=== PATIENT | female | born 1975 | race Two or more races ===

== ENCOUNTER 2021-12-19 22:35 | Inpatient (IN) | payer BC ==
[~2021-12-19] VITALS: Ht 167.6 cm; Wt 81.1 kg
[2021-12-20 01:03] LABS: Urine Bacteria NONE SEEN /hpf (None Seen); Urine Blood Negative /uL (Negative); Urine Specific Gravity 1.006 (1.001-1.035); Urine WBC <1 /hpf (0 - 5)
[2021-12-20 01:10] LABS: Eosinophils # (auto) 0.1 10 ^3/uL (0-0.8); Eosinophils % (auto) 0.8 % (0.0-7.0); Lymphocytes % (auto) 9.5 % (10.0-50.0); Monocytes # (auto) 0.9 10 ^3/uL (0-1.3)
[2021-12-20 01:11] LABS: Albumin 4.1 g/dL (3.4-5.0); Calcium 8.9 mg/dL (8.5-10.1)
[2021-12-20 01:12] LABS: Basophils # (auto) 0 10 ^3/uL (0-0.2); Basophils % (auto) 0.4 % (0.0-2.0); Hematocrit 40.7 % (36.0-46.0); Hemoglobin 13.1 g/dL (12.2-16.2); Lymphocytes # (auto) 1.2 10 ^3/uL (0.4-5.4); Mean Corpuscular Hemoglobin 26.3 pg (28.0-32.0); Mean Corpuscular Hgb Conc. 32.1 g/dL (32.0-36.0); Mean Corpuscular Volume 82.1 fL (80.0-100.0); Neutrophils # (auto) 10.5 10 ^3/uL (1.6-8.6); Neutrophils % (auto) 82.3 % (37.0-80.0); Red Blood Cells 4.96 10^6/uL (4.0-5.20); Red Cell Distribution Width 13.1 % (11.8-14.3); White Blood Cell 12.7 10^3/uL (4.4-10.8)
[2021-12-20 01:13] LABS: BUN/Creatinine Ratio 6.5
[2021-12-20 01:16] LABS: Bilirubin, Total 0.5 mg/dL (0.2-1.0); Total Protein 8.4 g/dL (6.4-8.2)
[2021-12-20] MEDS ORDERED: IOHEXOL 300 MG/ML 100ML BOTTLE IJ ONE (02:14)
[2021-12-20] MEDS ORDERED: KETOROLAC TROMETH 30 MG/ML 1ML VIAL IV ONE (02:45)
[2021-12-20] MEDS ORDERED: cefTRIAXone 1GM/50ML D5W 50 ML IV ONE (05:30)
[2021-12-20] MEDS ORDERED: metroNIDAZOLE 500MG/100ML 100 ML IV ONE (05:30)
[2021-12-20] MEDS ORDERED: HYDROcodone-ACET 5/325MG TAB PO PRN (09:15)
[2021-12-20] MEDS ORDERED: MORPHINE SULFATE INJ 2 MG/ml SYRG IV PRN (09:15)
[2021-12-20 10:20] LABS: Cholesterol 181 mg/dL (< 200); HDL Cholesterol 88 mg/dL (40-59); LDL Cholesterol 79 mg/dL (< 100); Triglycerides 78 mg/dL (< 150)
[2021-12-20] MEDS: SODIUM CHLORIDE 0.9% 1,000 ML IV SCH ×2 (10:30→22:15)
[2021-12-20] MEDS: PANTOPRAZOLE 40 MG/10 ML VIAL INJ IV SCH (10:53)
[2021-12-20] MEDS: ONDANSETRON HCL 4 MG/2 ML VIAL IV PRN (13:56)
[2021-12-20] MEDS: metroNIDAZOLE 500MG/100ML 100 ML IV SCH ×2 (14:07→22:15)
[2021-12-20] MEDS: ACETAMINOPHEN 325 MG TAB PO PRN (16:46)
[2021-12-21] MEDS: SODIUM CHLORIDE 0.9% 1,000 ML IV SCH ×3 (01:52→17:39)
[2021-12-21 06:01] LABS: Basophils # (auto) 0.1 10 ^3/uL (0-0.2); Basophils % (auto) 0.7 % (0.0-2.0); Eosinophils # (auto) 0.1 10 ^3/uL (0-0.8); Hematocrit 35.8 % (36.0-46.0); Hemoglobin 11.7 g/dL (12.2-16.2); Lymphocytes # (auto) 0.8 10 ^3/uL (0.4-5.4); Lymphocytes % (auto) 7.6 % (10.0-50.0); Mean Corpuscular Hemoglobin 26.6 pg (28.0-32.0); Mean Corpuscular Hgb Conc. 32.7 g/dL (32.0-36.0); Mean Corpuscular Volume 81.4 fL (80.0-100.0); Monocytes # (auto) 0.6 10 ^3/uL (0-1.3); Neutrophils # (auto) 8.8 10 ^3/uL (1.6-8.6); Neutrophils % (auto) 84.7 % (37.0-80.0); Red Cell Distribution Width 12.9 % (11.8-14.3); White Blood Cell 10.4 10^3/uL (4.4-10.8)
[2021-12-21 06:13] LABS: Calcium 8.4 mg/dL (8.5-10.1); Potassium 4.2 mmol/L (3.5-5.1)
[2021-12-21 06:17] LABS: BUN/Creatinine Ratio 14.5
[2021-12-21] MEDS: cefTRIAXone 1GM/50ML D5W 50 ML IV SCH (09:00)
[2021-12-21] MEDS: metroNIDAZOLE 500MG/100ML 100 ML IV SCH ×3 (11:44→21:14)
[2021-12-21] MEDS: PANTOPRAZOLE 40 MG/10 ML VIAL INJ IV SCH (11:46)
[2021-12-21 13:55] VITALS: BP 117/61
[2021-12-21] MEDS ORDERED: TERB250T66 PO (15:24)
[2021-12-21 17:00] VITALS: BP 101/68
[2021-12-21] MEDS: DOCUSATE SOD 100 MG CAP PO SCH (21:13)
[2021-12-21 22:00] VITALS: BP 91/40
[2021-12-21] MEDS: ONDANSETRON HCL 4 MG/2 ML VIAL IV PRN (23:08)
[2021-12-22 05:00] VITALS: BP 97/50
[2021-12-22] MEDS: SODIUM CHLORIDE 0.9% 1,000 ML IV SCH ×2 (05:01→09:30)
[2021-12-22] MEDS: metroNIDAZOLE 500MG/100ML 100 ML IV SCH ×3 (05:30→22:00)
[2021-12-22 09:00] VITALS: BP 93/59
[2021-12-22] MEDS: cefTRIAXone 1GM/50ML D5W 50 ML IV SCH (10:30)
[2021-12-22] MEDS: PANTOPRAZOLE 40 MG/10 ML VIAL INJ IV SCH (10:36)
[2021-12-22] MEDS: DOCUSATE SOD 100 MG CAP PO SCH ×2 (10:37→22:00)
[2021-12-22] MEDS: D5W/SOD CHL 0.45% 1,000 ML IV SCH ×2 (11:45→22:00)
[2021-12-22] MEDS: ACETAMINOPHEN 325 MG TAB PO PRN ×2 (12:40→22:01)
[2021-12-22 13:00] VITALS: BP 94/51
[2021-12-22 17:00] VITALS: BP 121/49
[2021-12-22 22:00] VITALS: BP 114/62
[2021-12-23] MEDS: ONDANSETRON HCL 4 MG/2 ML VIAL IV PRN (03:30)
[2021-12-23] MEDS: D5W/SOD CHL 0.45% 1,000 ML IV SCH ×3 (03:45→19:45)
[2021-12-23 05:00] VITALS: BP 101/51
[2021-12-23] MEDS: metroNIDAZOLE 500MG/100ML 100 ML IV SCH ×3 (05:55→22:37)
[2021-12-23] MEDS: cefTRIAXone 1GM/50ML D5W 50 ML IV SCH (10:38)
[2021-12-23] MEDS: DOCUSATE SOD 100 MG CAP PO SCH ×2 (10:39→22:38)
[2021-12-23 13:00] VITALS: BP_SYST 110; BP_SYST 113; BP_DIAS 48; BP_DIAS 56
[2021-12-23 17:00] VITALS: BP 102/66
[2021-12-23] MEDS: ACETAMINOPHEN 325 MG TAB PO PRN (19:40)
[2021-12-23 22:00] VITALS: BP 116/54
[2021-12-24] MEDS: D5W/SOD CHL 0.45% 1,000 ML IV SCH ×3 (03:45→19:52)
[2021-12-24 05:00] VITALS: BP 94/62
[2021-12-24] MEDS: metroNIDAZOLE 500MG/100ML 100 ML IV SCH ×3 (05:30→20:57)
[2021-12-24] MEDS ORDERED: OMNIPAQUE ORAL SOLN 500ml 12mg/ml PO ONE (06:36)
[2021-12-24 06:52] LABS: Basophils # (auto) 0.1 10 ^3/uL (0-0.2); Basophils % (auto) 1.9 % (0.0-2.0); Eosinophils # (auto) 0.1 10 ^3/uL (0-0.8); Eosinophils % (auto) 3.6 % (0.0-7.0); Hematocrit 34.3 % (36.0-46.0); Hemoglobin 11.5 g/dL (12.2-16.2); Mean Corpuscular Hgb Conc. 33.4 g/dL (32.0-36.0); Mean Corpuscular Volume 80.7 fL (80.0-100.0); Monocytes # (auto) 0.4 10 ^3/uL (0-1.3); Monocytes % (auto) 11.4 % (0.0-12.0); Neutrophils # (auto) 2.2 10 ^3/uL (1.6-8.6); Neutrophils % (auto) 57.1 % (37.0-80.0); Nucleated Red Blood Cells % 0.1 %; Red Blood Cells 4.25 10^6/uL (4.0-5.20); Red Cell Distribution Width 12.7 % (11.8-14.3); White Blood Cell 3.9 10^3/uL (4.4-10.8)
[2021-12-24 07:05] LABS: Calcium 8.1 mg/dL (8.5-10.1); Potassium 3.6 mmol/L (3.5-5.1)
[2021-12-24 07:09] LABS: BUN/Creatinine Ratio 6.2
[2021-12-24] MEDS: DOCUSATE SOD 100 MG CAP PO SCH ×2 (08:54→20:57)
[2021-12-24] MEDS: cefTRIAXone 1GM/50ML D5W 50 ML IV SCH (08:54)
[2021-12-24] MEDS ORDERED: IOHEXOL 300 MG/ML 100ML BOTTLE IJ ONE (08:58)
[2021-12-24 09:00] VITALS: BP 118/67
[2021-12-24 13:00] VITALS: BP 124/71
[2021-12-24 17:00] VITALS: BP 114/71
[2021-12-24 22:00] VITALS: BP 122/75
[2021-12-25] MEDS: D5W/SOD CHL 0.45% 1,000 ML IV SCH ×2 (03:45→11:45)
[2021-12-25] MEDS: metroNIDAZOLE 500MG/100ML 100 ML IV SCH ×2 (04:59→14:00)
[2021-12-25 05:00] VITALS: BP 104/62
[2021-12-25 09:00] VITALS: BP 123/67
[2021-12-25] MEDS: cefTRIAXone 1GM/50ML D5W 50 ML IV SCH (09:13)
[2021-12-25] MEDS: DOCUSATE SOD 100 MG CAP PO SCH (09:13)
[2021-12-25] MEDS ORDERED: METR500T PO (10:57)
[2021-12-25] MEDS ORDERED: LEVO500T31 PO (10:57)
== END 2021-12-25 14:16 | disposition home or self-care (01) | DRG 392 ==
LOC: ER 22:37 → OVERFLOW 12-20 09:15 → CENTRAL 12-21 10:23
PROVIDERS: ADMIT Registered Nurse; ATTEND Internal Medicine
DX: K57.32 Diverticulitis of large intestine without perforation or abscess without bleeding (principal); E27.8 Other specified disorders of adrenal gland; Z20.822 Contact with and (suspected) exposure to COVID-19; K59.00 Constipation, unspecified; Z90.710 Acquired absence of both cervix and uterus
CPT/HCPCS: 36415; 74177; 80048; 80053; 80061; 81001; 82378; 83036; 83605; 83690; 84702; 85025; 87426; 96365; 96368; 96375; C9113; G0378; J0696; J1885; J2405; J3490